=== PATIENT | female | born 1945 | race Caucasian/White ===

== ENCOUNTER 2017-08-16 11:32 | Emergency (ER) | payer MEDICARE ==
[~2017-08-16] VITALS: Ht 154.9 cm; Wt 74.4 kg
[~2017-08-16 11:32] MED LIST: ALBUTEROL2.5 MG/0.5 INH; ANORO ELLIPTA1 EACH IH; ASPIRIN EC81 M1 PO; ATORVASTATIN CA80 MG PO; CITRACAL + D C1 EACH PO; CLARITIN10 MG PO; COZAAR 50 MG TA50 M2 PO; CYMBALTA30 MG PO; DUONEB 2.5-0.5 M3 ML INH; FISH OIL 1,0001 EAC5 PO; FLOVENT HFA 1110 MCG INH; FLU VACCINE; LEVAQUIN 500 M500 M2 PO; LEVAQUIN 750 M750 MG PO; LORAZEPAM 2MG TA2 M1 PO; LOSARTAN POTASS50 MG PO; MUCINEX TA600 MG/TA2 PO; MUCINEX600 MG PO; MULTIVITAMINS1 EAC7 PO; NIACIN50 MG PO; OMEPRAZOLE40 MG PO; PREDNISONE 10 M10 M1 PO; PREDNISONE 10 M10 MG PO; SINGULAIR 10 MG10 M1 PO; SYMBICORT160 MCG/4. INH; TRIAMCINOLONE A15 G2 TOP; VITAMIN D1000 UNI1 PO; VITCB500GO PO; XOPENEX0.31 MG/3; XOPENEX1.25 MG/3 INH; [UNRECOGNIZED DRUG - OTHER]
[2017-08-16 12:11] LABS: HEMATOCRIT 39.6 % (37.0-47.0); HEMOGLOBIN 13.1 gm/dL (12.0-15.0); MCH 30.4 pg (26.0-34.0); MCV 92.2 fL (80.0-100.0); MPV 7.6 fl. (7.2-11.1); NUCLEATED RBCS 0 /100WBC; PLATELET COUNT* 386 thou/uL (150-400); RDW-CV 14.8 % (10.5-14.5); WBC 9.8 thou/uL (4.0-11.0)
[2017-08-16 12:29] LABS: CALCIUM 8.9 mg/dL (8.5-10.1); CREATININE 1.3 mg/dL (0.6-1.3); POTASSIUM 3.4 mmol/L (3.5-5.1)
[2017-08-16 12:34] LABS: ALBUMIN 3.5 g/dL (3.4-5.0); TOTAL BILIRUBIN 0.6 mg/dL (<0.1-1.0); TOTAL PROTEIN 7.4 g/dL (6.4-8.2)
[2017-08-16 12:41] LABS: URINE BILIRUBIN NEGATIVE (Negative); URINE BLOOD NEGATIVE (Negative); URINE CLARITY CLEAR; URINE COLOR YELLOW; URINE GLUCOSE-RANDOM NEGATIVE (Negative); URINE KETONES TRACE (Negative); URINE LEUKOCYTES-REFLEX NEGATIVE (Negative); URINE NITRITE-REFLEX NEGATIVE (Negative); URINE PROTEIN 1+ (Negative); URINE SPECIFIC GRAVITY >= 1.030 (1.005-1.030); URINE UROBILINOGEN 0.2 E.U./dl (0.2-1.0)
[2017-08-16 12:46] LABS: ABSOLUTE LYMPHOCYTES 1.1 thou/uL (0.8-5.3); ABSOLUTE MONOCYTES 0.6 thou/uL (0.0-1.2); ABSOLUTE NEUTROPHILS 8.1 thou/uL (1.6-8.1); ANISOCYTOSIS 1+; PLATELET ESTIMATE ADEQUATE; POIKILOCYTOSIS 1+
[2017-08-16] MEDS ORDERED: ZOFRAN ODT4 MG PO (13:46)
[2017-08-16] MEDS ORDERED: TUSSIONEX PENN115 ML PO (13:46)
[2017-08-16 14:51] VITALS: BP 134/66
== END 2017-08-16 14:52 | disposition home or self-care (01) ==
LOC: M.ERS 11:32
PROVIDERS: Emergency Medicine
DX: K52.9 Noninfective gastroenteritis and colitis, unspecified (principal); J40 Bronchitis, not specified as acute or chronic; G89.29 Other chronic pain; J44.9 Chronic obstructive pulmonary disease, unspecified; M19.90 Unspecified osteoarthritis, unspecified site; F10.99 Alcohol use, unspecified with unspecified alcohol-induced disorder; Z87.01 Personal history of pneumonia (recurrent); Z98.890 Other specified postprocedural states; Z88.1 Allergy status to other antibiotic agents; Z88.2 Allergy status to sulfonamides; Z88.5 Allergy status to narcotic agent; Z88.8 Allergy status to other drugs, medicaments and biological substances; Z87.891 Personal history of nicotine dependence

== ENCOUNTER 2018-05-17 15:49 | Emergency (ER) | payer MEDICARE ==
[~2018-05-17] VITALS: Ht 154.9 cm; Wt 76.3 kg
[~2018-05-17 15:49] MED LIST changes: +TUSSIONEX PENN115 ML PO; +ZOFRAN ODT4 MG PO
[2018-05-17 16:40] LABS: HEMATOCRIT 33.2 % (37.0-47.0); HEMOGLOBIN 10.9 gm/dL (12.0-15.0); MCH 30.9 pg (26.0-34.0); MCHC 32.9 g/dL (28.0-37.0); MCV 94.2 fL (80.0-100.0); MPV 7.8 fl. (7.2-11.1); NUCLEATED RBCS 0 /100WBC; PLATELET COUNT* 275 thou/uL (150-400); RBC 3.53 mil/uL (4.20-5.00); RDW-CV 14.1 % (10.5-14.5); WBC 11.8 thou/uL (4.0-11.0)
[2018-05-17 16:48] LABS: ANION GAP 7 mmol/L (7-16); BUN 11 mg/dL (7-18); CALCIUM 9.1 mg/dL (8.5-10.1); CHLORIDE 99 mmol/L (98-107); CO2 31 mmol/L (21-32); CREATININE 0.8 mg/dL (0.6-1.3); GLUCOSE 176 mg/dL (70-99); POTASSIUM 3.6 mmol/L (3.5-5.1); SODIUM 137 mmol/L (136-145)
[2018-05-17 16:54] LABS: ALBUMIN 3.3 g/dL (3.4-5.0); ALKALINE PHOSPHATASE 92 U/L (46-116); MAGNESIUM 1.7 mg/dL (1.8-2.4); SGOT 16 U/L (15-37); SGPT 23 U/L (30-65); TOTAL BILIRUBIN 0.8 mg/dL (<0.1-1.0); TOTAL PROTEIN 7.2 g/dL (6.4-8.2); TROPONIN-I LEVEL <0.06 ng/mL (<0.06)
[2018-05-17 17:12] LABS: ABSOLUTE EOSINOPHILS 0.1 thou/uL (0.0-0.7); ABSOLUTE LYMPHOCYTES 0.8 thou/uL (0.8-5.3); ABSOLUTE MONOCYTES 0.4 thou/uL (0.0-1.2); ABSOLUTE NEUTROPHILS 10.5 thou/uL (1.6-8.1)
[2018-05-17 17:13] LABS: PLATELET ESTIMATE ADEQUATE
[2018-05-17] MEDS ORDERED: LEVAQUIN 500 M500 M3 PO (18:19)
[2018-05-17 18:31] VITALS: BP 139/45
--- NOTE | 2018-05-18 11:08 | EKG ---
[place] [address] ELECTROCARDIOGRAM REPORT Name: ADAM BARKER Room: [facility]#: [id number] Admission: 05/17/18 Attend Phys: Discharge: 05/17/18 Date of : 45 Report #: [id number] THIS REPORT FOR: //name// [facility] ED Test Date: 2018-05-17 Test Time: 15:59:37 Pat Name: ADAM BARKER Department: Room: Gender: F Manufacturing Job Titles: MILLICENT : 1945 Requested By: Radha Ward Order Number: [id number] MD: Andrea Granger Measurements Intervals [place] Rate: 103 P: 77 AR: 209 QRS: 67 QRSD: 77 T: 69 QT: 336 QTc: 440 Interpretive Statements Sinus tachycardia Borderline prolonged AR interval Nonspecific T abnormalities, lateral leads Compared to ECG 06/28/2017 19:45:25 Sinus rhythm no longer present Ventricular premature complex(es) no longer present Electronically Signed On 05-18-2018 11:07:48 CDT by Andrea Granger [email or web address] <ELECTRONICALLY SIGNED> By: Andrea Granger MD, FACC 05/18/18 1107 1559 1559 Andrea Granger MD, [facility] /EPI
== END 2018-05-17 18:30 | disposition home or self-care (01) ==
LOC: M.ERS 15:49
PROVIDERS: Personal Emergency Response Attendant
DX: J44.9 Chronic obstructive pulmonary disease, unspecified (principal); J84.10 Pulmonary fibrosis, unspecified; M19.90 Unspecified osteoarthritis, unspecified site; Z87.891 Personal history of nicotine dependence; Z88.1 Allergy status to other antibiotic agents; Z88.2 Allergy status to sulfonamides; Z88.5 Allergy status to narcotic agent; Z88.8 Allergy status to other drugs, medicaments and biological substances; Z87.01 Personal history of pneumonia (recurrent)

== ENCOUNTER → 2018-06-04 | Outpatient (CLI) | payer MEDICARE ==
[~2018-06-04] MED LIST changes: +LEVAQUIN 500 M500 M3 PO
== END ==
LOC: M.ULTRA 13:55
DX: C64.2 Malignant neoplasm of left kidney, except renal pelvis (principal)

== ENCOUNTER 2018-07-23 07:41 | Inpatient (IN) | payer MEDICARE ==
[~2018-07-23] VITALS: Ht 157.5 cm; Wt 74.8 kg
--- NOTE | ~2018-07-23 | OP ---
[address] [address] OPERATIVE REPORT Name: ADAM BARKER Room: [address] IN M.R.#: [id number] Admission: 07/23/18 Attend Phys: Ana Lara DO Discharge: Date of : 45 Report #: [id number] THIS REPORT FOR: //name// CC: Ana Recinos DATE OF SERVICE: 07/23/2018 PREOPERATIVE DIAGNOSIS: Acute appendicitis. POSTOPERATIVE DIAGNOSIS: Acute appendicitis. OPERATION: Laparoscopic appendectomy. SURGEON: Theodore Mota MD ANESTHESIA: General. ESTIMATED BLOOD LOSS: Minimal. SPECIMEN: Appendix. DESCRIPTION OF PROCEDURE: After informed consent was obtained, the patient was brought to the operating room and placed supine. SCDs were placed and working, preoperative antibiotics were administered, general anesthesia was induced. The abdomen was prepped and draped in the usual sterile fashion. A 10 mm incision was made above the umbilicus. The fascia was incised and a trocar was placed. Pneumoperitoneum was established. Right upper quadrant and left lower quadrant 5 mm ports were placed. The appendix was noted to be in the right upper quadrant. It was inflamed and infected consistent with the CT findings. The base of the appendix was dissected around. It was stapled off with a KENYATTA blue load stapler. I then ligated the mesoappendix with a KENYATTA white load stapler. The appendix was removed with an Endopouch. The fascia at the umbilicus was closed with a [id number] 0 Vicryl. Skin was closed with 4-0 Monocryl. Incisions were sealed with Dermabond. COMPLICATIONS: None. DISPOSITION: The patient was taken to recovery in satisfactory condition. By: 1818 1859Theodore Mota MD /nt
[~2018-07-23 07:41] MED LIST changes: -CITRACAL + D C1 EACH PO; +CITRACAL PO; +COZAAR 50 MG TA50 M1 PO; -COZAAR 50 MG TA50 M2 PO; -FLOVENT HFA 1110 MCG INH; +FLOVENT HFA10.6 GM IH; +[UNRECOGNIZED DRUG - OTHER] PO
[2018-07-23 07:58] VITALS: BP 155/63
[2018-07-23 08:34] LABS: HEMOGLOBIN 11.1 gm/dL (12.0-15.0); MCHC 32.7 g/dL (28.0-37.0); MCV 91.7 fL (80.0-100.0); MPV 7.6 fl. (7.2-11.1); NUCLEATED RBCS 0 /100WBC; PLATELET COUNT* 268 thou/uL (150-400); RBC 3.71 mil/uL (4.20-5.00); RDW-CV 16.6 % (10.5-14.5); WBC 11.8 thou/uL (4.0-11.0)
[2018-07-23 08:41] LABS: ANION GAP 6 mmol/L (7-16); BUN 17 mg/dL (7-18); CALCIUM 9.2 mg/dL (8.5-10.1); CHLORIDE 102 mmol/L (98-107); CO2 30 mmol/L (21-32); CREATININE 0.7 mg/dL (0.6-1.3); GLUCOSE 142 mg/dL (70-99); POTASSIUM 3.7 mmol/L (3.5-5.1); SODIUM 138 mmol/L (136-145)
[2018-07-23 08:48] LABS: ALBUMIN 3.7 g/dL (3.4-5.0); ALKALINE PHOSPHATASE 85 U/L (46-116); LIPASE 145 U/L (73-393); SGOT 25 U/L (15-37); SGPT 33 U/L (30-65); TOTAL BILIRUBIN 0.5 mg/dL (<0.1-1.0); TOTAL PROTEIN 7.2 g/dL (6.4-8.2); TROPONIN-I LEVEL <0.06 ng/mL (<0.06)
[2018-07-23 09:31] LABS: ABSOLUTE EOSINOPHILS 0.1 thou/uL (0.0-0.7); ABSOLUTE LYMPHOCYTES 0.7 thou/uL (0.8-5.3); ABSOLUTE MONOCYTES 0.1 thou/uL (0.0-1.2); ABSOLUTE NEUTROPHILS 10.9 thou/uL (1.6-8.1); METAMYELOCYTES 1 %; PLATELET ESTIMATE ADEQUATE
[2018-07-23 11:10] LABS: URINE BILIRUBIN NEGATIVE (Negative); URINE BLOOD NEGATIVE (Negative); URINE CLARITY CLEAR; URINE COLOR YELLOW; URINE GLUCOSE-RANDOM NEGATIVE (Negative); URINE KETONES NEGATIVE (Negative); URINE LEUKOCYTES-REFLEX NEGATIVE (Negative); URINE NITRITE-REFLEX NEGATIVE (Negative); URINE PROTEIN NEGATIVE (Negative); URINE SPECIFIC GRAVITY >= 1.030 (1.005-1.030); URINE UROBILINOGEN 0.2 E.U./dl (0.2-1.0)
--- NOTE | 2018-07-23 11:38 | EKG ---
[place] [address] ELECTROCARDIOGRAM REPORT Name: ADAM BARKER Bennie Room: [facility]#: [id number] Admission: 07/23/18 Attend Phys: Discharge: Date of : 45 Report #: [id number] THIS REPORT FOR: //name// [facility] ED Test Date: 2018-07-23 Test Time: 08:35:47 Pat Name: ADAM BARKER Department: Room: Gender: F Electromedical Service Engineer: HIREN : 1945 Requested By: Jayy Vazquez Order Number: [id number] MD: Andrea Granger Measurements Intervals [place] Rate: 87 P: 75 TX: 185 QRS: 54 QRSD: 83 T: 63 QT: 371 QTc: 447 Interpretive Statements Sinus rhythm Borderline low voltage, extremity leads Compared to ECG 05/17/2018 15:59:37 Sinus tachycardia no longer present T-wave abnormality no longer present Electronically Signed On 07-23-2018 11:38:08 ACCIDENT INVESTIGATOR by Andrea Granger [email or web address] <ELECTRONICALLY SIGNED> By: Andrea Granger MD, [facility] 07/23/18 1138 4 4 Andrea Granger MD, FACC /EPI
[2018-07-23 14:18] VITALS: BP 142/57
[2018-07-23 14:38] VITALS: BP 122/67
[2018-07-23 15:46] VITALS: BP 122/67
[2018-07-23 16:41] VITALS: BP 136/61
[2018-07-23 19:30] VITALS: BP 142/52
[2018-07-24] VITALS: BP 130/59
[2018-07-24 04:00] VITALS: BP 115/62
[2018-07-24 08:45] VITALS: BP 119/46
[2018-07-24] MEDS ORDERED: NORCO 5-325 TA1 EACH PO (15:00)
[2018-07-24 15:37] VITALS: BP 115/62
[2018-07-24 15:55] VITALS: BP 169/87
[2018-07-24 17:06] VITALS: BP 115/62
--- NOTE | 2018-07-28 11:07 | PATH ---
[address] [address] PATHOLOGY RPT PROCEDURE Name: ADAM BUCIO Room: [address] IN M.R.#: [id number] Admission: 07/23/18 Date of : 45 Discharge: 07/24/18 Report #: [id number] Path Case #: [id number] L[facility] Accession Number: [id number] . 01 Material submitted: . APPENDIX . 01 Clinical history: . Appendicitis . 02 Diagnosis: Appendix, appendectomy: - Acute appendicitis and periappendicitis. . (SKM:at;07/25/2018) QTA/07/25/2018 . 02 Electronically signed: . Juan Jose Jeffery MD, Pathologist NPI- [id number] . 01 Gross description: . The specimen is received in formalin, labeled "Adam Bucio, appendix". Received is a vermiform appendix measuring 6.8 cm in length by up to 1.0 cm in diameter with a moderate amount of attached mesoappendix. The serosal surface is pale vann to dusky pink-hensley in appearance. The proximal margin is inked. Sectioning reveals a pinpoint to dilated lumen filled with fecal material admixed with a slight amount of fibrinopurulent exudate. The specimen is submitted representatively in cassettes A1 and A2, with the proximal margin and bisected tip submitted in cassette A1. (CAA; 07/24/2018) QAC/QAC . 02 Pathologist provided ICD-10: K35.80 . 02 CPT . 779429 Specimen Comment: A courtesy copy of this report has been sent to Specimen Comment: [phone], . Specimen Comment: Report sent to and Specimen Comment: A duplicate report has been generated due to demographic updates. Performed at: [address] [id number] MD Henrik Walsh MD Phone: [phone] Performed at: 02 [place] [address] PATHOLOGY RPT PROCEDURE Name: ADAM BUCIO Room: [address] DIS IN M.R.#: [id number] Admission: 07/23/18 Date of : 45 Discharge: 07/24/18 Report #: [id number] Path Case #: [id number] [facility] Mariano Momin [address] Lenny Gould, MERRY Han [id number] MD Gagandeep Simeon MD Phone: [phone]
== END 2018-07-24 16:20 | disposition home or self-care (01) | DRG 342 ==
LOC: M.ERS 07:41 → M.ORTHSURG 12:03 → M.TBA-ER 12:03 → M.ORTHSURG 14:07
PROVIDERS: Emergency Medicine Emergency Medical Services; ADMIT Surgery
PROC: 0DTJ4ZZ Resection of Appendix, Percutaneous Endoscopic Approach (ICD-10-PCS; principal; 2018-07-23)
DX: K35.80 Unspecified acute appendicitis (principal); R65.10 Systemic inflammatory response syndrome (SIRS) of non-infectious origin without acute organ dysfunction; M25.50 Pain in unspecified joint; M19.90 Unspecified osteoarthritis, unspecified site; J44.9 Chronic obstructive pulmonary disease, unspecified; G89.29 Other chronic pain; Z90.49 Acquired absence of other specified parts of digestive tract; Z88.6 Allergy status to analgesic agent; Z88.2 Allergy status to sulfonamides; Z88.8 Allergy status to other drugs, medicaments and biological substances; Z87.891 Personal history of nicotine dependence; Z82.49 Family history of ischemic heart disease and other diseases of the circulatory system

== ENCOUNTER → 2018-08-04 | Outpatient (CLI) | payer MEDICARE ==
[~2018-08-04] MED LIST changes: +NORCO 5-325 TA1 EACH PO
--- NOTE | 2018-08-04 13:19 | 2DMMODE ---
[place] [address] 2 D/M-MODE ECHOCARDIOGRAM Name: JUNIENIURKAADAM Bennie Room: [facility]#: [id number] Admission: 08/04/18 Attend Phys: Jasper Mitchell Discharge: Date of : 45 Date of Service: 08/04/18 1319 Report #: [id number] THIS REPORT FOR: //name// APPROVED REPORT Study performed: 08/04/2018 09:33:44 EXAM: Comprehensive 2D, Doppler, and color-flow Echocardiogram Patient Location: Out-Patient Status: routine BSA: 1.72 HR: 92 bpm BP: 158/70 mmHg Other Information Study Quality: Good Indications Abnormal ECG Dyspnea 2D Dimensions IVSd: 10.40 (7-11mm) LVOT Diam: 20.50 (18-24mm) LVDd: 44.05 mm PWd: 10.26 (7-11mm) Ascending Ao: 30.29 (22-36mm) LVDs: 26.95 (25-40mm) Aortic Root: 27.16 mm Volumes Left Atrial Volume (Systole) LA ESV Index: 20.30 mL/m2 Aortic Valve AoV Peak Orion.: 1.27 m/s AO Peak Gr.: 6.40 mmHg LVOT Max P.72 mmHg AO Mean Gr.: 4.09 mmHg LVOT Mean P.49 mmHg LVOT Max V: 0.96 m/s AO V2 VTI: 30.78 cm LVOT Mean V: 0.54 m/s CLARITZA (VTI): 2.19 cm2 LVOT V1 VTI: 20.47 cm Mitral Valve E/A Ratio: 0.87 MV Decel. Time: 188.55 ms MV E Max Orion.: 0.82 m/[place] [address] 2 D/M-MODE ECHOCARDIOGRAM Name: ADAM BARKER Room: [facility]#: [id number] Admission: 08/04/18 Attend Phys: Jasper Mitchell Discharge: Date of : 45 Date of Service: 08/04/18 1319 Report #: [id number] MV PHT: 54.68 ms MVA (PHT): 4.02 cm2 TDI E/Lateral E': 11.71 E/Medial E': 8.20 Medial E' Orion.: 0.10 m/s Lateral E' Orion.: 0.07 m/s Pulmonary Valve PV Peak Orion.: 0.97 m/s PV Peak Gr.: 3.73 mmHg Left Ventricle The left ventricle is normal size. There is normal LV segmental wall motion. There is normal left ventricular wall thickness. Left ventricular systolic function is normal. The left ventricular ejection fraction is within the normal range. LVEF is 55-60%. Grade I - abnormal relaxation pattern. Right Ventricle The right ventricle is normal size. The right ventricular systolic function is normal. Atria The left atrium size is normal. The right atrium size is normal. Aortic Valve The aortic valve is normal in structure. No aortic regurgitation is present. There is no aortic valvular stenosis. Mitral Valve The mitral valve is normal in structure. There is no mitral valve regurgitation noted. No evidence of mitral valve stenosis. Tricuspid Valve The tricuspid valve is normal in structure. There is no tricuspid valve regurgitation noted. Pulmonic Valve The pulmonary valve is normal in structure. There is no pulmonic valvular regurgitation. Great Vessels The aortic root is normal in size. IVC is normal in size and collapses >50% [place] [address] 2 D/M-MODE ECHOCARDIOGRAM Name: ADAM BARKER Room: [facility]#: [id number] Admission: 08/04/18 Attend Phys: Jasper Mitchell Discharge: Date of : 45 Date of Service: 08/04/18 1319 Report #: [id number] Pericardium There is no pericardial effusion. <Conclusion> The left ventricle is normal size. There is normal left ventricular wall thickness. Left ventricular systolic function is normal. The left ventricular ejection fraction is within the normal range. LVEF is 55-60%. Grade I - abnormal relaxation pattern. The right ventricle is normal size. The left atrium size is normal. The aortic valve is normal in structure. The mitral valve is normal in structure. The tricuspid valve is normal in structure. IVC is normal in size and collapses >50% with inspiration. There is no pericardial effusion. There is normal LV segmental wall motion. <ELECTRONICALLY SIGNED> By: Larry Soriano MD, [facility] 08/04/18 1319 18 18 Larry Soriano MD, FACC /INF
== END ==
LOC: M.CRD 09:00
DX: R94.31 Abnormal electrocardiogram [ECG] [EKG] (principal); R06.00 Dyspnea, unspecified; R06.02 Shortness of breath

== ENCOUNTER 2018-08-07 10:30 | Inpatient (IN) | payer MEDICARE ==
[~2018-08-07] VITALS: Ht 165.1 cm; Wt 72.1 kg
[2018-08-07 10:40] VITALS: BP 167/70
[2018-08-07 11:18] LABS: HEMATOCRIT 36.3 % (37.0-47.0); HEMOGLOBIN 11.9 gm/dL (12.0-15.0); MCH 29.7 pg (26.0-34.0); MCHC 32.9 g/dL (28.0-37.0); MCV 90.3 fL (80.0-100.0); MPV 7.6 fl. (7.2-11.1); NUCLEATED RBCS 0 /100WBC; PLATELET COUNT* 381 thou/uL (150-400); RBC 4.02 mil/uL (4.20-5.00); RDW-CV 16.2 % (10.5-14.5); WBC 15.6 thou/uL (4.0-11.0)
[2018-08-07 11:27] LABS: ANION GAP 6 mmol/L (7-16); BUN 10 mg/dL (7-18); CALCIUM 9.2 mg/dL (8.5-10.1); CHLORIDE 100 mmol/L (98-107); CO2 29 mmol/L (21-32); CREATININE 0.8 mg/dL (0.6-1.3); GLUCOSE 138 mg/dL (70-99); POTASSIUM 3.7 mmol/L (3.5-5.1); SODIUM 135 mmol/L (136-145)
[2018-08-07 11:34] LABS: ALBUMIN 3.5 g/dL (3.4-5.0); ALKALINE PHOSPHATASE 93 U/L (46-116); SGOT 18 U/L (15-37); SGPT 25 U/L (30-65); TOTAL BILIRUBIN 1.1 mg/dL (<0.1-1.0); TOTAL PROTEIN 7.7 g/dL (6.4-8.2); TROPONIN-I LEVEL <0.06 ng/mL (<0.06)
[2018-08-07 12:08] LABS: ABSOLUTE LYMPHOCYTES 0.9 thou/uL (0.8-5.3); ABSOLUTE MONOCYTES 0.8 thou/uL (0.0-1.2); ABSOLUTE NEUTROPHILS 13.9 thou/uL (1.6-8.1); ANISOCYTOSIS 1+; PLATELET ESTIMATE ADEQUATE; POIKILOCYTOSIS 1+
[2018-08-07 12:58] LABS: INFLUENZA A ANTIGEN None Detected (None Detect); INFLUENZA B ANTIGEN None Detected (None Detect)
--- NOTE | 2018-08-07 14:05 | NUR ---
RETURN CALL RECEIVED FROM DR. FRAZIER, [facility]. TRANSFERED TO CHRISTINE KELLEY.
[2018-08-07 14:31] LABS: URINE BILIRUBIN NEGATIVE (Negative); URINE BLOOD NEGATIVE (Negative); URINE CLARITY CLEAR; URINE COLOR YELLOW; URINE GLUCOSE-RANDOM NEGATIVE (Negative); URINE KETONES NEGATIVE (Negative); URINE LEUKOCYTES-REFLEX NEGATIVE (Negative); URINE NITRITE-REFLEX NEGATIVE (Negative); URINE PROTEIN TRACE (Negative); URINE UROBILINOGEN 0.2 E.U./dl (0.2-1.0)
[2018-08-07 14:33] VITALS: BP 155/61
[2018-08-07 16:02] VITALS: BP 148/71
[2018-08-07 18:48] LABS: HEMATOCRIT 31.4 % (37.0-47.0); HEMOGLOBIN 10.3 gm/dL (12.0-15.0)
--- NOTE | 2018-08-07 19:46 | NUR ---
VSS-AFEBRILE. LUNGS DIMINISHED IN ALL FUENTES BILATERALLY. PLACED ON 2LNC. C/O GENERALIZED ABDOMINAL PAIN THAT WAS PARTIALLY RELIEVED BY FENTANYLS GIVEN IN THE ER. OOB AD GOLD-STEADY ON FEET. TOLERATING MEALS WITH NO REPORTED N/V. CALLS APPROPRIATELY FOR ANY NEEDED ASSISTANCE
[2018-08-07 20:00] VITALS: BP 170/78
[2018-08-07] MEDS ORDERED: LIPITOR10 MG PO (20:22)
[2018-08-08] VITALS: BP 141/61
[2018-08-08 04:00] VITALS: BP 121/64
[2018-08-08 04:04] LABS: ABSOLUTE EOSINOPHILS 0.1 thou/uL (0.0-0.7); ABSOLUTE LYMPHOCYTES 1.3 thou/uL (0.8-5.3); ABSOLUTE MONOCYTES 0.9 thou/uL (0.0-1.2); ABSOLUTE NEUTROPHILS 8.1 thou/uL (1.6-8.1); BASOPHILS 0.3 %; EOSINOPHILS 0.5 %; HEMATOCRIT 30.1 % (37.0-47.0); HEMOGLOBIN 9.9 gm/dL (12.0-15.0); LYMPHOCYTES 12.8 %; MCH 30.1 pg (26.0-34.0); MCHC 32.9 g/dL (28.0-37.0); MCV 91.4 fL (80.0-100.0); MONOCYTES 8.5 %; MPV 7.6 fl. (7.2-11.1); NUCLEATED RBCS 0 /100WBC; POLYS 77.9 %; RBC 3.29 mil/uL (4.20-5.00); RDW-CV 15.6 % (10.5-14.5); WBC 10.4 thou/uL (4.0-11.0)
[2018-08-08 04:05] LABS: PLATELET COUNT* 283 thou/uL (150-400)
--- NOTE | 2018-08-08 07:27 | NUR ---
Alert and oriented x 4. Up with stand by assist to bathroom with O2 at 2L n/c. We used extra long O2 tubing. Home meds were ordered by Dr Mcgrath and he changed her antibiotic. Sputum specimen sent. New IV started in her rt hand 20 gauge. She has been coughing this shift. At bedtime she complained of a headache at her rt forehead,tylenol and ice given, it did help. She has slept well.
[2018-08-08 08:14] VITALS: BP 141/65
--- NOTE | 2018-08-08 10:46 | EKG ---
[place] [address] ELECTROCARDIOGRAM REPORT Name: ADAM BARKER Room: [address] ADM IN M.R.#: [id number] Admission: 08/07/18 Attend Phys: Daniel Gunter Discharge: Date of : 45 Report #: [id number] THIS REPORT FOR: //name// ED Test Date: 2018-08-07 Test Time: 10:53:08 Pat Name: ADAM BARKER Department: Room: [facility] Gender: F Prototype Special Build: Matt COREY : 1945 Requested By: Radha Almonte Order Number: [id number] : Larry Soriano Measurements Intervals [place] Rate: 102 P: 96 CA: 182 QRS: 62 QRSD: 86 T: 65 QT: 339 QTc: 442 Interpretive Statements Sinus tachycardia Compared to ECG 07/23/2018 08:35:47 Sinus rate has increassed Electronically Signed On 08-08-2018 10:46:26 METER REPAIRER HELPER by Larry Soriano [email or web address] <ELECTRONICALLY SIGNED> By: Larry Soriano MD, [facility] 08/08/18 1046 1053 1053 Larry Soriano MD, [facility] /EPI
[2018-08-08 14:02] LABS: ABSOLUTE MONOCYTES 0.7 thou/uL (0.0-1.2); ABSOLUTE NEUTROPHILS 8.4 thou/uL (1.6-8.1); BASOPHILS 0.4 %; EOSINOPHILS 0.4 %; HEMATOCRIT 30.6 % (37.0-47.0); HEMOGLOBIN 10.2 gm/dL (12.0-15.0); MCH 30.4 pg (26.0-34.0); MCHC 33.4 g/dL (28.0-37.0); MCV 90.7 fL (80.0-100.0); MONOCYTES 7.1 %; MPV 7.3 fl. (7.2-11.1); NUCLEATED RBCS 0 /100WBC; PLATELET COUNT* 309 thou/uL (150-400); POLYS 82.1 %; RBC 3.37 mil/uL (4.20-5.00); RDW-CV 15.9 % (10.5-14.5); WBC 10.2 thou/uL (4.0-11.0)
[2018-08-08 16:30] VITALS: BP 125/53
[2018-08-08 20:00] VITALS: BP 146/46
[2018-08-08 21:52] LABS: HEMATOCRIT 29.7 % (37.0-47.0); HEMOGLOBIN 9.7 gm/dL (12.0-15.0)
[2018-08-09 04:14] LABS: ABSOLUTE BASOPHILS 0.1 thou/uL (0.0-0.2); ABSOLUTE EOSINOPHILS 0.1 thou/uL (0.0-0.7); ABSOLUTE LYMPHOCYTES 1.4 thou/uL (0.8-5.3); ABSOLUTE MONOCYTES 0.7 thou/uL (0.0-1.2); ABSOLUTE NEUTROPHILS 5.3 thou/uL (1.6-8.1); BASOPHILS 0.9 %; EOSINOPHILS 1.5 %; HEMOGLOBIN 9.4 gm/dL (12.0-15.0); LYMPHOCYTES 18.2 %; MCH 30.5 pg (26.0-34.0); MCHC 33.6 g/dL (28.0-37.0); MCV 90.7 fL (80.0-100.0); MPV 7.5 fl. (7.2-11.1); NUCLEATED RBCS 0 /100WBC; PLATELET COUNT* 287 thou/uL (150-400); POLYS 70.4 %; RBC 3.08 mil/uL (4.20-5.00); RDW-CV 15.6 % (10.5-14.5); WBC 7.6 thou/uL (4.0-11.0)
[2018-08-09 04:33] LABS: CALCIUM 8.6 mg/dL (8.5-10.1); CREATININE 0.7 mg/dL (0.6-1.3); POTASSIUM 3.6 mmol/L (3.5-5.1)
--- NOTE | 2018-08-09 05:57 | NUR ---
ASSESSMENT: PT REMAIN ALERT AND ORIENT TIMES FOUR. IVY. UP TO BR WITH SBA. VITALS STABLE, AFEBRILE. DENIES PAIN. GOOD COUGH WITH CLEARING CONGESTION. SLOW PROGRESS TOWARDS DC GOALS. WILL CONTINUE TO MONITOR.
[2018-08-09] MEDS ORDERED: AUGMENTIN 875-1 EACH PO (09:04)
--- NOTE | 2018-08-09 14:01 | NUR ---
PT.LIVES AT HOME WITH HER . IS NORMALLY INDEPENDENT. HAS HOME O2, NO OTHER DME. NO HX OF SNF OR HOME HEALTH. PT.PLANS TO GO HOME AT DISCHARGE.
[2018-08-09 16:00] VITALS: BP 152/60
[2018-08-09 16:02] LABS: URINE BILIRUBIN NEGATIVE (Negative); URINE BLOOD NEGATIVE (Negative); URINE CLARITY CLEAR; URINE COLOR YELLOW; URINE GLUCOSE-RANDOM NEGATIVE (Negative); URINE KETONES NEGATIVE (Negative); URINE LEUKOCYTES-REFLEX NEGATIVE (Negative); URINE NITRITE-REFLEX NEGATIVE (Negative); URINE PROTEIN NEGATIVE (Negative); URINE UROBILINOGEN 0.2 E.U./dl (0.2-1.0)
[2018-08-09 20:00] VITALS: BP 163/57
[2018-08-10 05:04] LABS: HEMOGLOBIN 9.3 gm/dL (12.0-15.0)
--- NOTE | 2018-08-10 06:44 | NUR ---
Alert and oriented x 4. She is on O2 at 2L n/c with extra long tubing so she can walk to the bathroom. She had been having rt upper quadrant pain that radiated to her back,she states that the IV toradol has helped a lot. She has slept well this shift.
[2018-08-10 08:30] VITALS: BP 139/69
[2018-08-10 13:37] VITALS: BP 139/69
[2018-08-10] MEDS ORDERED: COLACE100 MG PO (13:59)
[2018-08-10] MEDS ORDERED: FIBERCON625 M1 PO (14:00)
[2018-08-10] MEDS ORDERED: MIRALAX17 GM PO (14:01)
[2018-08-10] MEDS ORDERED: IBUPROFEN 800800 M1 PO (14:04)
[2018-08-10] MEDS ORDERED: TYLENOL EXTRA500 MG PO (14:06)
[2018-08-10 14:14] VITALS: BP 139/69
[2018-08-10 15:28] VITALS: BP 139/69
--- NOTE | 2018-08-10 15:34 | NUR ---
PATIENT DISCHARGED FROM UNIT AT 1446. ALERT AND ORIENTED X 4. VITAL SIGNS STABLE ON ROOM AIR. UP AD GOLD IN ROOM. IV DISCONTINUED. DENIES PAIN AND NAUSEA. DISCHARGE INSTRUCTIONS, MEDICATION INFORMATION, AND SCRIPT GIVEN TO PATIENT. HOURLY ROUNDS MAINTAINED THROUGHOUT THE SHIFT. CALL LIGHT WITHIN REACH. NURSING WILL CONTINUE TO MONITOR.
== END 2018-08-10 14:46 | disposition home or self-care (01) | DRG 177 ==
LOC: M.ERS 10:30 → M.TBA-ER 14:11 → M.ORTHSURG 14:11
PROVIDERS: Internal Medicine; Nurse Practitioner Adult Health; Physician Assistant; Urology; ADMIT Internal Medicine
DX: J15.6 Pneumonia due to other Gram-negative bacteria (principal); K65.8 Other peritonitis; C93.00 Acute monoblastic/monocytic leukemia, not having achieved remission; J44.0 Chronic obstructive pulmonary disease with (acute) lower respiratory infection; N28.1 Cyst of kidney, acquired; G89.29 Other chronic pain; I10 Essential (primary) hypertension; E78.5 Hyperlipidemia, unspecified; D63.8 Anemia in other chronic diseases classified elsewhere; M54.9 Dorsalgia, unspecified; M25.50 Pain in unspecified joint; M19.90 Unspecified osteoarthritis, unspecified site; Z90.49 Acquired absence of other specified parts of digestive tract; Z88.6 Allergy status to analgesic agent; Z88.2 Allergy status to sulfonamides; Z88.8 Allergy status to other drugs, medicaments and biological substances; Z87.891 Personal history of nicotine dependence; Z87.11 Personal history of peptic ulcer disease; Z82.49 Family history of ischemic heart disease and other diseases of the circulatory system; Z80.51 Family history of malignant neoplasm of kidney

== ENCOUNTER 2018-12-12 11:13 | Emergency (ER) | payer MEDICARE ==
[~2018-12-12] VITALS: Ht 154.9 cm; Wt 72.6 kg
[~2018-12-12 11:13] MED LIST changes: +AUGMENTIN 875-1 EACH PO; +COLACE100 MG PO; +FIBERCON625 M1 PO; +IBUPROFEN 800800 M1 PO; +LIPITOR10 MG PO; +MIRALAX17 GM PO; +TYLENOL EXTRA500 MG PO
[2018-12-12 11:44] LABS: ABSOLUTE BASOPHILS 0.1 thou/uL (0.0-0.2); ABSOLUTE EOSINOPHILS 0.1 thou/uL (0.0-0.7); ABSOLUTE LYMPHOCYTES 1.2 thou/uL (0.8-5.3); ABSOLUTE MONOCYTES 0.4 thou/uL (0.0-1.2); BASOPHILS 1.1 %; EOSINOPHILS 2.1 %; HEMATOCRIT 35.3 % (37.0-47.0); HEMOGLOBIN 11.6 gm/dL (12.0-15.0); LYMPHOCYTES 20.9 %; MCH 30.1 pg (26.0-34.0); MCHC 32.9 g/dL (28.0-37.0); MCV 91.4 fL (80.0-100.0); MONOCYTES 7.4 %; MPV 7.5 fl. (7.2-11.1); NUCLEATED RBCS 0 /100WBC; PLATELET COUNT* 311 thou/uL (150-400); POLYS 68.5 %; RBC 3.86 mil/uL (4.20-5.00); RDW-CV 15.8 % (10.5-14.5); WBC 5.9 thou/uL (4.0-11.0)
[2018-12-12 11:54] LABS: APTT 27.3 Seconds (25.0-31.3); INR 0.9; PROTIME 9.7 Seconds (9.20-11.50)
[2018-12-12 12:03] LABS: ANION GAP 6 mmol/L (7-16); BUN 15 mg/dL (7-18); CHLORIDE 104 mmol/L (98-107); CO2 32 mmol/L (21-32); CREATININE 0.7 mg/dL (0.6-1.3); GLUCOSE 116 mg/dL (70-99); POTASSIUM 3.8 mmol/L (3.5-5.1); SODIUM 142 mmol/L (136-145)
[2018-12-12 12:15] LABS: ALBUMIN 3.5 g/dL (3.4-5.0); ALKALINE PHOSPHATASE 95 U/L (46-116); LIPASE 129 U/L (73-393); MAGNESIUM 1.8 mg/dL (1.8-2.4); NT-PRO BRAIN NAT PEPTIDE 75 pg/mL (<300); SGOT 24 U/L (15-37); SGPT 31 U/L (30-65); TOTAL BILIRUBIN 0.5 mg/dL (<0.1-1.0); TOTAL PROTEIN 7.1 g/dL (6.4-8.2); TROPONIN-I LEVEL <0.06 ng/mL (<0.06)
[2018-12-12 12:53] LABS: URINE BILIRUBIN NEGATIVE (Negative); URINE BLOOD NEGATIVE (Negative); URINE CLARITY CLEAR; URINE COLOR YELLOW; URINE GLUCOSE-RANDOM NEGATIVE (Negative); URINE KETONES NEGATIVE (Negative); URINE LEUKOCYTES-REFLEX NEGATIVE (Negative); URINE NITRITE-REFLEX NEGATIVE (Negative); URINE PROTEIN NEGATIVE (Negative); URINE UROBILINOGEN 0.2 E.U./dl (0.2-1.0)
[2018-12-12] MEDS ORDERED: ZOFRAN ODT4 MG DISSOLVE (14:27)
[2018-12-12] MEDS ORDERED: FLEXERIL PO (14:27)
[2018-12-12] MEDS ORDERED: TESSALON PERLE100 MG PO (14:27)
[2018-12-12 14:40] VITALS: BP 130/41
--- NOTE | 2018-12-13 10:29 | EKG ---
[place] [address] ELECTROCARDIOGRAM REPORT Name: ADAM BARKER Room: [facility]#: [id number] Admission: 12/12/18 Attend Phys: Discharge: 12/12/18 Date of : 45 Report #: [id number] THIS REPORT FOR: //name// [facility] ED Test Date: 2018-12-12 Test Time: 11:18:47 Pat Name: ADAM BARKER Department: Room: Gender: F Bolt Sorter: Matt COREY : 1945 Requested By: Jayy Vazquez Order Number: [id number] MD: Larry Soriano Measurements Intervals [place] Rate: 85 P: 87 [place]: 169 QRS: 62 QRSD: 91 T: 77 QT: 385 QTc: 458 Interpretive Statements Sinus rhythm Borderline low voltage, extremity leads Compared to ECG 08/07/2018 10:53:08 Sinus tachycardia no longer present Electronically Signed On 12-13-2018 10:29:08 CDT by Larry Soriano [email or web address] <ELECTRONICALLY SIGNED> By: Larry Soriano MD, [facility] 12/13/18 1029 17 Larry Soriano MD, FAC /EPI
== END 2018-12-12 14:42 | disposition home or self-care (01) ==
LOC: M.ERS 11:13
PROVIDERS: Emergency Medicine Emergency Medical Services
DX: J44.1 Chronic obstructive pulmonary disease with (acute) exacerbation (principal); M19.90 Unspecified osteoarthritis, unspecified site; M25.50 Pain in unspecified joint; G89.29 Other chronic pain; Z87.891 Personal history of nicotine dependence; Z88.8 Allergy status to other drugs, medicaments and biological substances; Z88.2 Allergy status to sulfonamides; Z88.5 Allergy status to narcotic agent; Z90.49 Acquired absence of other specified parts of digestive tract

== ENCOUNTER → 2019-04-06 | Outpatient (CLI) | payer MEDICARE ==
[~2019-04-06] MED LIST changes: +FLEXERIL PO; +TESSALON PERLE100 MG PO; +ZOFRAN ODT4 MG DISSOLVE
[2019-04-06 11:24] LABS: ABSOLUTE BASOPHILS 0.1 thou/uL (0.0-0.2); ABSOLUTE EOSINOPHILS 0.1 thou/uL (0.0-0.7); ABSOLUTE MONOCYTES 0.4 thou/uL (0.0-1.2); ABSOLUTE NEUTROPHILS 4.9 thou/uL (1.6-8.1); BASOPHILS 1.5 %; EOSINOPHILS 2.3 %; HEMATOCRIT 36.4 % (37.0-47.0); HEMOGLOBIN 12.2 gm/dL (12.0-15.0); MCH 31.8 pg (26.0-34.0); MCHC 33.5 g/dL (28.0-37.0); MCV 94.9 fL (80.0-100.0); MONOCYTES 6.1 %; MPV 7.6 fl. (7.2-11.1); NUCLEATED RBCS 0 /100WBC; PLATELET COUNT* 300 thou/uL (150-400); POLYS 75.1 %; RBC 3.84 mil/uL (4.20-5.00); RDW-CV 14.9 % (10.5-14.5); WBC 6.5 thou/uL (4.0-11.0)
[2019-04-06 11:36] LABS: ALBUMIN 3.6 g/dL (3.4-5.0); ALKALINE PHOSPHATASE 92 U/L (46-116); ANION GAP 5 mmol/L (7-16); BUN 15 mg/dL (7-18); CALCIUM 9.1 mg/dL (8.5-10.1); CHLORIDE 104 mmol/L (98-107); CHOLESTEROL 181 mg/dL (<200); CO2 31 mmol/L (21-32); CREATININE 0.7 mg/dL (0.6-1.3); GLUCOSE 107 mg/dL (70-99); HDL CHOLESTEROL 86 mg/dL (>40); LDL CHOLESTEROL 79 mg/dL (<100); POTASSIUM 4.2 mmol/L (3.5-5.1); SGOT 18 U/L (15-37); SGPT 23 U/L (30-65); SODIUM 140 mmol/L (136-145); TC:HDL 2.1 Ratio (Not establshd); TOTAL BILIRUBIN 0.4 mg/dL (<0.1-1.0); TOTAL PROTEIN 7.1 g/dL (6.4-8.2); TRIGLYCERIDE 80 mg/dL (<150); VLDL 16 mg/dL (<40)
[2019-04-06 11:37] LABS: SERUM ASSESSMENT Clear
[2019-04-07 02:06] LABS: GLYCOHEMOGLOBIN (HGB A1C) 5.5 % (4.8-5.6)
== END ==
LOC: M.LAB 11:00
PROVIDERS: Neuromusculoskeletal Medicine & OMM
DX: E11.9 Type 2 diabetes mellitus without complications (principal); E06.9 Thyroiditis, unspecified; I10 Essential (primary) hypertension; E78.00 Pure hypercholesterolemia, unspecified

== ENCOUNTER → 2019-09-15 | Outpatient (CLI) | payer OTHER | LOC: M.CT 11:06 | DX: Z13.6 Encounter for screening for cardiovascular disorders (principal); E78.00 Pure hypercholesterolemia, unspecified; I25.10 Atherosclerotic heart disease of native coronary artery without angina pectoris ==

== ENCOUNTER → 2020-11-15 | Outpatient (CLI) | payer OTHER ==
[2020-11-15 14:47] LABS: ABSOLUTE BASOPHILS 0.1 thou/uL (0.0-0.2); ABSOLUTE EOSINOPHILS 0.1 thou/uL (0.0-0.7); ABSOLUTE LYMPHOCYTES 1.3 thou/uL (0.8-5.3); ABSOLUTE MONOCYTES 0.4 thou/uL (0.0-1.2); ABSOLUTE NEUTROPHILS 5.1 thou/uL (1.6-8.1); BASOPHILS 1.2 %; EOSINOPHILS 1.4 %; HEMATOCRIT 34.6 % (37.0-47.0); HEMOGLOBIN 11.6 gm/dL (12.0-15.0); LYMPHOCYTES 18.2 %; MCH 31.8 pg (26.0-34.0); MCHC 33.4 g/dL (28.0-37.0); MCV 95.1 fL (80.0-100.0); MONOCYTES 6.3 %; MPV 7.4 fl. (7.2-11.1); NUCLEATED RBCS 0 /100WBC; PLATELET COUNT* 287 thou/uL (150-400); POLYS 72.9 %; RBC 3.64 mil/uL (4.20-5.00); RDW-CV 13.4 % (10.5-14.5); WBC 7.1 thou/uL (4.0-11.0)
[2020-11-15 14:58] LABS: CHOLESTEROL 214 mg/dL (<200); HDL CHOLESTEROL 94 mg/dL (>40); LDL CHOLESTEROL 100 mg/dL (<100); TC:HDL 2.3 Ratio (Not establshd); TRIGLYCERIDE 101 mg/dL (<150); VLDL 20 mg/dL (<40)
[2020-11-15 15:12] LABS: SERUM ASSESSMENT Clear
== END ==
LOC: M.LAB 14:30
PROVIDERS: ATTEND Specialist
DX: D50.9 Iron deficiency anemia, unspecified (principal); E78.5 Hyperlipidemia, unspecified

== ENCOUNTER 2020-11-30 14:21 | Observation (INO) | payer OTHER ==
[~2020-11-30] VITALS: Ht 154.9 cm; Wt 70.3 kg
[2020-11-30 14:25] VITALS: BP 174/64
[2020-11-30 14:42] LABS: ABSOLUTE BASOPHILS 0.1 thou/uL (0.0-0.2); ABSOLUTE EOSINOPHILS 0.1 thou/uL (0.0-0.7); ABSOLUTE LYMPHOCYTES 1.5 thou/uL (0.8-5.3); ABSOLUTE MONOCYTES 0.5 thou/uL (0.0-1.2); BASOPHILS 1.4 %; EOSINOPHILS 2.4 %; HEMATOCRIT 33.3 % (37.0-47.0); HEMOGLOBIN 11.2 gm/dL (12.0-15.0); LYMPHOCYTES 24.4 %; MCH 32.1 pg (26.0-34.0); MCHC 33.6 g/dL (28.0-37.0); MCV 95.6 fL (80.0-100.0); MONOCYTES 7.4 %; MPV 7.6 fl. (7.2-11.1); NUCLEATED RBCS 0 /100WBC; PLATELET COUNT* 266 thou/uL (150-400); POLYS 64.4 %; RBC 3.48 mil/uL (4.20-5.00); RDW-CV 13.6 % (10.5-14.5); WBC 6.2 thou/uL (4.0-11.0)
[2020-11-30 14:48] LABS: CREATININE 0.7 mg/dL (0.6-1.3); POTASSIUM 4.4 mmol/L (3.5-5.1)
[2020-11-30 14:53] LABS: ALBUMIN 3.7 g/dL (3.4-5.0); TOTAL BILIRUBIN 0.5 mg/dL (<0.1-1.0); TOTAL PROTEIN 7.3 g/dL (6.4-8.2)
[2020-11-30 16:35] VITALS: BP 163/69
[2020-11-30 17:15] VITALS: BP 163/73
[2020-11-30 20:30] VITALS: BP 145/56
[2020-11-30 23:47] VITALS: BP 165/65
[2020-12-01 03:31] VITALS: BP 158/71
--- NOTE | 2020-12-01 04:51 | NUR ---
ASSUMED PATIENT CARE AT 1900. PATIENT ALERT AND ORIENTED TIMES FOUR. PATIENT REQUESTS O2 FOR SLEEP SHE DOES WEAR O2 AT HOME. MINOR COMPLAINTS OF PAIN NOTED, CONTROLLED WITH ORAL MEDICATION. ANXIETY MEDICATION ALSO GIVEN PER PATIENT REQUEST. CONDITIONER TUMBLER OPERATOR AND HOURLY ROUNDING COMPLETED CHARTED.
--- NOTE | 2020-12-01 07:20 | NUR ---
CHANGE OF SHIFT BEDSIDE BEDSIDE REPORT GIVEN PATIENT SEEN AT BEDSIDE, IN BED RESTING ASSUMED PATIENT CARE
[2020-12-01 08:00] VITALS: BP 128/71
--- NOTE | 2020-12-01 12:43 | EKG ---
[place] [address] ELECTROCARDIOGRAM REPORT Name: LUCEROADAM LIN Room: [address] M.R.#: [id number] Admission: 11/30/20 Attend Phys: Chalino Nolasco Discharge: Date of : 45 Date of Service: 11/30/20 1424 Report #: [id number] THIS REPORT FOR: //name// [facility] ED Test Date: 2020-11-30 Test Time: 14:24:46 Pat Name: ADAM BARKER Department: Room: [facility] Gender: F Tire Technician: RAMYA : 1945 Requested By: Atul Castañeda Order Number: [id number] MD: Andrea Granger Measurements Intervals [place] Rate: 84 P: 83 ND: 174 QRS: 58 QRSD: 86 T: 63 QT: 374 QTc: 443 Interpretive Statements Sinus rhythm Ventricular premature complex Borderline low voltage, extremity leads Compared to ECG 12/12/2018 11:18:47 Ventricular premature complex(es) now present Electronically Signed On 12-01-2020 12:43:42 CDT by Andrea Granger [email or web address] <ELECTRONICALLY SIGNED> By: Andrea Granger MD, [facility] 12/01/20 1243 1424 1424 Andrea Granger MD, [facility] /EPI
--- NOTE | 2020-12-01 13:43 | NUR ---
Pt is A&O. Resides at home with . Pt has home o2. No hx of HH or SNF. Pt to have stress test today, dc to home today post test if negative. No needs.
[2020-12-01 16:00] VITALS: BP 162/63
--- NOTE | 2020-12-01 16:54 | CARDNUC ---
[place] [address] CARDIAC NUCLEAR IMAGING REPORT Name: ADAM BARKER Room: [address] M.R.#: [id number] Admission: 11/30/20 Attend Phys: Chalino Nolasco Discharge: Date of : 45 Date of Service: 12/01/20 1654 Report #: [id number] THIS REPORT FOR: cc: Kristen De La Garza Mischelle RNP Liston, Michael J. MD [facility] ~ APPROVED REPORT Study performed: 12/01/2020 10:24:57 Exam: Nuclear Stress Test Indication: Chest pain Patient Location: In-Patient Room #: [facility] Stress Tech: Nat Joel Stress Nurse: Lenore Watts RN NM Tech:DC Martinez Ht: 5 ft 1 in Wt: 154 lbs BSA: 1.69 m2 BMI: 29.09 Medical History Medical History: COPD Medications: losartan, atorvastatin Allergies: multiple Cardiac Risk Factors: Age, Past Smoker Exercise History: Sedentary Stress Test Details Stress Test: Pharmacologic stress testing performed using 0.4 mg of regadenoson per 5 mL given IV over 10 seconds. Reason for pharmacologic stress test: arthritis. HR Resting HR: 81 bpm Max Heart Rate (APMHR): 145 bpm Max HR Achieved: 102 bpm Target HR (85% APMHR): 123 bpm % of APMHR: 70 Recovery HR: 93 bpm BP Resting BP: 137/60 mmHg Max BP: 150/64 mmHg BP response to stress: Blunted blood pressure response to [facility] [address] [place] [address] CARDIAC NUCLEAR IMAGING REPORT Name: ADAM BARKER [address] [id number] Admission: 11/30/20 Attend Phys: Chalino Nolasco Discharge: Date of : 45 Date of Service: 12/01/20 1654 Report #: [id number] stress. ECG Resting ECG: Sinus Rhythm Stress ECG: Sinus Tachycardia ST Change: None Arrhythmia: None Recovery ECG: Sinus Rhythm Recovery ST Change: None Recovery Arrhythmia: None Clinical Reason for Termination: Completed protocol The patient have mild chest tightness throughout the testing phase. Stress ECG Conclusion The baseline twelve-lead EKG shows sinus rhythm without significant ST segment abnormality. EKGs obtained during and post Lexiscan infusion shows sinus rhythm and sinus tachycardia with no significant ST segment changes when compared to baseline. NM EXAM: Myocardial Perfusion REST/STRESS Imaging Protocol: Rest Tc-99m/Stress Tc-99m 1 day Resting Data Rest SPECT myocardial perfusion imaging was performed in supine position 30 minutes following the intravenous injection of 8.0 mCi of Tc-99m Sestamibi. Time of rest injection: 929 Date: 12/01/2020 The images were gated to evaluate regional wall motion and calculate left ventricular ejection fraction. Administration Route: IV Pharmacologic Stress Pharmacologic stress test was performed by injecting Regadenoson 0.4 mg IV push followed by the intravenous injection of 28.7 mCi of Tc-99m Sestamibi. Time of stress injection: 1054 Date: 12/01/2020 Administration Route: IV Gated Stress SPECT was performed 40 minutes after stress injection. The images were gated to evaluate regional wall motion and calculate left ventricular ejection fraction. Prone imaging was [place] [address] CARDIAC NUCLEAR IMAGING REPORT Name: ADAM BARKER Room: [address]#: [id number] Admission: 11/30/20 Attend Phys: Chalino Nolasco Discharge: Date of : 45 Date of Service: 12/01/20 1654 Report #: [id number] Study: Good Artifact: Mild Breast artifact Study Data At rest, the left ventricular ejection fraction was 70%.. Post stress, the left ventricular ejection was 74%.. TID = 0.96. Perfusion Perfusion images obtained at rest post Lexiscan stress in the supine position show mild photopenia of the distal to apical anterior wall that resolves with post-rest prone imaging consistent with breast attenuation artifact. No other significant fixed or reversible defects were identified. Wall Motion Normal left ventricular wall motion. Nuclear Conclusion ECG Findings: negative for ischemia Clinical Findings: equivocal Nuclear Findings: negative for ischemia Exercise Capacity: not assessed Left Ventricular Function: normal Risk Study: low Perfusion images show no defect to suggest infarct or ischemia. Left ventricular systolic function appears normal on gated studies. This is a low risk study. <Conclusion> The baseline twelve-lead EKG shows sinus rhythm without significant ST segment abnormality. EKGs obtained during and post Lexiscan infusion shows sinus rhythm and sinus tachycardia with no significant ST segment changes when compared to baseline. <ELECTRONICALLY SIGNED> By: Jarad Mukherjee MD, FACC 12/01/20 1654 1654 1654 Jarad Mukherjee MD, FACC /INF
[2020-12-01 17:56] VITALS: BP 128/71
--- NOTE | 2020-12-01 18:30 | NUR ---
DISCHARGE TO HOME DC INSTRUCTIONS GIVEN PAPERWORK GIVEN IV AND HEART MONITOR REMOVED PERSONAL BELONGINGS RETURNED ASSIST BY 1 OF VIA WC TO WAITING CAR
--- NOTE | 2020-12-04 10:00 | CON ---
[address] [address] CONSULTATION Name: ADAM BARKER Room: [address] Andre Brown#: [id number] Admission: 11/30/20 Attend Phys: Noel Dangelo Discharge: 12/01/20 Date of : 45 Report #: [id number] THIS REPORT FOR: cc: Kristen De La Garza Mischelle RNP Liston, Michael J. MD [facility] ~ DOC #: [id number] cc: Jasper Cobos MD, YAMILA Wright MD DATE OF CONSULTATION: 12/01/2020 CARDIOLOGY CONSULTATION INDICATION: Chest pain. HISTORY OF PRESENT ILLNESS: The patient is a very pleasant 75-year-old white female, who has coronary artery disease based on a calcium score of 1100. Cardiac risk factors include dyslipidemia and family history of coronary artery disease. She has a tobacco use history, but quit smoking remotely. The patient was admitted through the Emergency Room yesterday after experiencing chest pressure and pain located in the midsternal region radiating from the epigastric area up to the upper sternal area. This was described as a tightness. Just prior to this, she had urged for defecation and went to the restroom. She had normal bowel movement, but continued to feel uneasy with chest pressure. She took her blood pressure, but was unable to get accurate readings. She reports a blood pressure of 98/88. She, at that time, informed her family that she felt something was wrong and 911 was called. The patient was seen and brought to the hospital for further evaluation. The discomfort ultimately resolved. She still has a slight pressure-type feeling. Her EKG at the time shows sinus rhythm without acute ST segment abnormality. Troponins are unremarkable. PAST MEDICAL HISTORY: 1. Coronary artery disease. 2. COPD/pulmonary fibrosis. 3. History of gastrointestinal bleeding from what sounds like varices. 4. Arthritis. 5. Chronic back pain. PAST SURGICAL HISTORY: 1. Appendectomy. 2. Cholecystectomy. 3[place] [address] CONSULTATION Name: ADAM BARKER Room: [address] Andre Brown#: [id number] Admission: 11/30/20 Attend Phys: Noel Dangelo Discharge: 12/01/20 Date of : 45 Report #: [id number] FAMILY HISTORY: Positive for coronary artery disease. SOCIAL HISTORY: The patient is . She is the primary care provider for her at home. She quit smoking remotely. She does not drink alcohol. HOME MEDICATIONS: Tylenol p.r.n., albuterol inhaler q.i.d., atorvastatin 10 mg at bedtime, Cymbalta 30 mg daily, Xopenex puff q.i.d., lorazepam 2 mg at bedtime, losartan 50 mg daily, Singulair 10 mg at bedtime, multivitamin 1 tablet daily, omeprazole 40 mg b.i.d., Anoro Ellipta inhaler as directed, calcium with D supplement 1 tablet daily. ALLERGIES: SULFA, CODEINE, PREDNISONE, METHOTREXATE, DOXYCYCLINE, HYDROXYCHLOROQUINE, TIZANIDINE, LYRICA. REVIEW OF SYSTEMS: A 14-point review of systems as per HPI, otherwise unremarkable. PHYSICAL EXAMINATION: VITAL SIGNS: Blood pressure 128/71, pulse is 84 and regular. GENERAL: This is a pleasant female in no distress. Mood and affect appropriate. HEENT: The patient is wearing glasses. Extraocular muscles are intact. Mucous membranes are moist. NECK: Shows no jugular venous distention. There are no carotid bruits. CHEST: Reveals clear lung lara. I do not appreciate wheezes or rales. HEART: Reveals a regular rhythm with normal S1 and S2. I do not appreciate a gallop or a murmur. ABDOMEN: Reveals normal bowel sounds. Abdomen is soft and nontender. EXTREMITIES: Show no edema. SKIN: Warm and dry. LABORATORY DATA: Reviewed. Sodium 143, potassium 4.4, chloride 105, bicarbonate 33, BUN 16, creatinine 0.7, serum glucose 101. LFTs within normal limits. Troponin less than 0.06 on 2 separate occasions. White blood cell count 6.2, hemoglobin 11.2, MCV 95.6, platelet count 266,000. IMAGING STUDIES: Chest x-ray shows no acute abnormality. IMPRESSION AND RECOMMENDATIONS: 1. Chest pain. Etiology not entirely clear. She has ruled out for myocardial infarction. She does have underlying coronary disease as evidenced by prior elevated calcium score. At this point in time, I am pursuing noninvasive stress testing. Further invasive evaluation pending those results. Continue risk [address] [address] CONSULTATION Name: ADAM BARKER Room: [address] JEOVANNY Brown#: [id number] Admission: 11/30/20 Attend Phys: Chalino Shirley Noel Nolasco Discharge: 12/01/20 Date of : 45 Report #: [id number] factor modification with lipid lowering. She is not on aspirin, presumably due to history of recent and extensive gastrointestinal bleeding. 2. Coronary artery disease, presently having chest pain, concerning for angina. Stress testing ordered as outlined above. 3. Gastrointestinal bleeding, presently appears stable. Her hemoglobin is stable. She is not having any active symptoms to suggest gastrointestinal bleeding. Continue omeprazole 40 mg b.i.d. 4. Dyslipidemia. Continue atorvastatin daily. 5. Chronic obstructive pulmonary disease/pulmonary fibrosis, appears relatively stable at this time. MD ANILA DewittL/RAT <ELECTRONICALLY SIGNED> By: Jarad Mukherjee MD, FACC 12/04/20 [id number] 2020Jarad Mukherjee MD, FAC /nt
== END 2020-12-01 18:15 | disposition home or self-care (01) ==
LOC: M.ERS 14:21 → M.TBA-ER 15:41 → M.2W 15:41
PROVIDERS: Emergency Medicine; ADMIT Internal Medicine; ATTEND Internal Medicine
DX: R07.89 Other chest pain (principal); Z20.822 Contact with and (suspected) exposure to COVID-19; K21.9 Gastro-esophageal reflux disease without esophagitis; M19.90 Unspecified osteoarthritis, unspecified site; G89.29 Other chronic pain; J43.9 Emphysema, unspecified; Z90.49 Acquired absence of other specified parts of digestive tract; Z88.5 Allergy status to narcotic agent; Z88.8 Allergy status to other drugs, medicaments and biological substances; Z79.899 Other long term (current) drug therapy; Z88.2 Allergy status to sulfonamides; Z87.891 Personal history of nicotine dependence

== ENCOUNTER → 2021-04-06 | Outpatient (CLI) | payer OTHER ==
[2021-04-06 13:52] LABS: ABSOLUTE BASOPHILS 0.1 thou/uL (0.0-0.2); ABSOLUTE EOSINOPHILS 0.1 thou/uL (0.0-0.7); ABSOLUTE LYMPHOCYTES 1.3 thou/uL (0.8-5.3); ABSOLUTE MONOCYTES 0.4 thou/uL (0.0-1.2); ABSOLUTE NEUTROPHILS 4.5 thou/uL (1.6-8.1); BASOPHILS 1.4 %; EOSINOPHILS 1.8 %; HEMATOCRIT 35.3 % (37.0-47.0); HEMOGLOBIN 11.9 gm/dL (12.0-15.0); LYMPHOCYTES 19.5 %; MCH 31.9 pg (26.0-34.0); MCHC 33.8 g/dL (28.0-37.0); MCV 94.5 fL (80.0-100.0); MPV 7.6 fl. (7.2-11.1); NUCLEATED RBCS 0 /100WBC; PLATELET COUNT* 265 thou/uL (150-400); POLYS 70.3 %; RBC 3.74 mil/uL (4.20-5.00); RDW-CV 13.6 % (10.5-14.5); WBC 6.4 thou/uL (4.0-11.0)
== END ==
LOC: M.LAB 13:12
PROVIDERS: ATTEND Specialist
DX: D50.9 Iron deficiency anemia, unspecified (principal)